=== PATIENT | male | born 1970 | race Caucasian/White ===

== ENCOUNTER 2022-11-12 12:41 | Emergency (ER) | payer SELFPAY ==
[2022-11-12] MEDS ORDERED: Ketorolac Tromethamine 30 MG/ML VIAL ONE (13:18)
== END 2022-11-12 13:50 | disposition home or self-care (01) ==
LOC: MADERS 12:41
DX: S93.491A Sprain of other ligament of right ankle, initial encounter (principal); I10 Essential (primary) hypertension; E03.9 Hypothyroidism, unspecified; F17.210 Nicotine dependence, cigarettes, uncomplicated; X50.1XXA Overexertion from prolonged static or awkward postures, initial encounter; Z79.899 Other long term (current) drug therapy
CPT/HCPCS: 96372; J1885